=== PATIENT | female | born 1990 | race Caucasian/White ===

== ENCOUNTER → 2016-09-23 | Outpatient (CLI) | payer MEDICAID ==
[~2016-09-23] MED LIST: ACETAMINOPHEN-O1 TAB PO; ALBUTEROL-200 PUFFS/ IH; ALPRAZOLAM0.25 M2 PO; AMOXICOT500 M1 PO; APAP/HYDROCODON1 TA9 PO; BUPROPION HCL75 M1 PO; CLONAZEPAM0.5 M1 PO; CYCLOBENZAPRINE10 M1 OR; DOXEPIN HYDROCH PO; GABAPENTIN100 MG PO; GABAPENTIN300 M1 PO; HYDROCODONE1 TABLET PO; HYDROXYZINE 25M25 MG PO; KEFLEX 500MG.500 MG PO; MACROBID100 M3 PO; MEDROL 4MG. DOSE4 MG PO; MELOXICAM7.5 MG PO; NORCO 325 MG-51 TAB PO; ORUDIS PO; PERCOCET 325 MG1 TA3 PO; PERCOCET1 TAB PO; PHENERGAN25 M3 PO; POLYETHYLE17 GM/DOSE PO; PREDNISONE 20MG20 MG PO; PRENATAL PLUS1 TA1 PO; SERTRALINE 50MG50 MG PO; SUMATRIPTAN SUC25 M1 PO; TYLENOL ES500 M1 PO; TYLENOL OR; VENTOLIN H0.09 MG/Ac IH; VISTARIL25 M1 PO; XANAX1 M1 PO; ZOFRAN ODT4 MG PO; ZOLOFT 50MG TAB50 MG PO
--- NOTE | 2016-09-23 14:16 | RADIOLOGY REPORT PS360 ---
CHEST(2 VIEWS-NOT PORTABLE) HISTORY: ABNORMAL CXR, COUGH ORDERING PHYSICIAN: Francisco Lange MD PATIENT AGE: 25 years COMPARISON: 08/03/2015 FINDINGS: The cardiomediastinal silhouette and pulmonary vascularity are within normal limits. The lungs are clear without infiltrates, suspicious nodules, or pleural effusions. No acute bony abnormalities. There remains increased density in the right lung base medially adjacent to the heart not severely change from the previous exam probably due to small pericardial fat pad. IMPRESSION: No change with no acute finding
== END ==
LOC: RAD 13:10
DX: R93.8 Abnormal findings on diagnostic imaging of other specified body structures (principal); R05 Cough

== ENCOUNTER → 2016-10-15 | Outpatient (CLI) | payer MEDICAID ==
[2016-10-15 16:33] LABS: LYMPH # 1.9 K/mm3 (0.7-4.5); LYMPH % 35.7 % (10-50.0)
[2016-10-15 16:43] LABS: HEMOGLOBIN 13.9 g/dL (12.2-16.2)
[2016-10-15 16:58] LABS: AMPHETAMINES/METAMPHETAMINES NEGATIVE ng/mL (<1000)
[2016-10-15 17:04] LABS: BUN 8 mg/dL (7-18)
[2016-10-15 17:12] LABS: GFR (ESTIMATED) 75 ML/MIN (59-)
[2016-10-17 10:36] LABS: HBsAg Screen Negative (Negative); Hep A Ab, IgM Negative (Negative); Hep B Core Ab, IgM Negative (Negative); Hep C Virus Ab <0.1 (0.0-0.9)
[2016-10-18 08:36] LABS: Vitamin D, 25-Hydroxy 42.4 ng/mL (30.0-100.0)
[2016-10-27 05:37] LABS: Opiates Negative (Cutoff=100)
== END ==
LOC: LAB 15:40
PROVIDERS: Emergency Medicine
DX: R53.83 Other fatigue (principal); Z79.899 Other long term (current) drug therapy
CPT/HCPCS: G0480

== ENCOUNTER → 2016-11-17 | Outpatient (CLI) | payer MEDICAID ==
[2016-11-17 18:41] LABS: AMPHETAMINES/METAMPHETAMINES NEGATIVE ng/mL (<1000)
[2016-11-24 09:39] LABS: Opiates Negative (Cutoff=100)
== END ==
LOC: LAB 15:48
PROVIDERS: Emergency Medicine
DX: Z79.899 Other long term (current) drug therapy (principal)

== ENCOUNTER → 2017-02-09 | Outpatient (CLI) | payer MEDICAID | LOC: RT 15:09 | DX: R53.1 Weakness (principal) ==